=== PATIENT | male | born 1950 | race Caucasian/White ===

== ENCOUNTER → 2016-10-12 | Outpatient (CLI) | payer MEDICARE ==
[~2016-10-12] MED LIST: ALEV220C2 PO; CELE100C PO; COUM2.5T11 PO; LOSA25TA8 PO; LYRI75CA PO; MAPA325T2 PO; PERCOCET PO
--- NOTE | 2016-10-12 16:08 | REP ---
MRI study left hip without and with IV contrast: History: Pain in the left hip recent total hip replacement. Question lesion affecting lateral femoral cutaneous nerve. Comparison radiographs: 01/06/2016. Technique: Sagittal, axial and coronal imaging planes are utilized. T1 and T2-weighted scans are included with without fat saturation. Coronal images include both hips. MRI findings: There is some magnetic field susceptibility artifact emanating from the metallic components of the left hip prosthesis. There is no visible periarticular mass or abnormal fluid collection. No vascular lesion is seen. No inguinal adenopathy is observed. No pelvic adenopathy is seen. No abnormalities noted in the sciatic notch. Cortical and medullary bone signal intensity are normal as visualized. No skeletal muscle lesion is seen. Seminal vesicles, prostate, and urinary bladder are unremarkable. Post-gadolinium enhanced images show no abnormal gadolinium enhancement. Impression: Status-post left hip replacement. No evidence of mass or adenopathy, abnormal fluid collection or other lesion. Signed by Norberto Mcnulty MD 10/12/2016 04:35 P
== END ==
LOC: M RAD 12:35
PROVIDERS: ATTEND Physical Medicine & Rehabilitation
DX: M25.552 Pain in left hip (principal); Z96.642 Presence of left artificial hip joint
CPT/HCPCS: 73723; A9576

== ENCOUNTER → 2019-03-21 | Outpatient (REF) | payer MEDICARE ==
[~2019-03-21] MED LIST changes: -COUM2.5T11 PO; +COUM2.5T17 PO; +LOSA25TA14 PO; -LOSA25TA8 PO; +OXYC1TAB23 PO
[2019-03-21 12:07] LABS: INR 1.03; PROTHROMBIN TIME 13.6 SECONDS (12.1-14.4)
[2019-03-21 12:08] LABS: PARTIAL THROMBOPLASTIN TIME 37.3 SECONDS (25.4-37.6)
[2019-03-21 12:12] LABS: COLLAGEN EPINEPHRINE 119 SECONDS (74-162)
== END ==
LOC: M LABDRAW1 09:20
PROVIDERS: ATTEND Physical Medicine & Rehabilitation
DX: Z01.812 Encounter for preprocedural laboratory examination (principal)